=== PATIENT | female | born 1950 ===

== ENCOUNTER 2021-08-28 22:10 | Inpatient (IN) ==
[2021-08-29] MEDS ORDERED: Naloxone 0.4 MG/ML INJ IVP PRN (00:30)
[2021-08-29] MEDS ORDERED: Melatonin 3 MG TABLET PO PRN (00:30)
[2021-08-29] MEDS ORDERED: Acetaminophen 325 MG TABLET PO PRN (00:30)
[2021-08-29] MEDS: 0.9 % Sodium Chloride 1,000 ML IVC SCH (01:17)
[2021-08-29 02:18] LABS: Albumin 2.3 g/dL (3.5-5.7); Bilirubin,Total 0.4 mg/dL (0.3-1.0); Globulin 2.4 g/dL (2.4-3.5); Magnesium 1.2 mg/dL (1.6-2.6); Phosphorous 5.2 mg/dL (2.7-4.5); Potassium 3.6 mEq/L (3.5-5.1); Total Protein 4.7 g/dL (6.4-8.9)
[2021-08-29 02:23] LABS: Basophils % 0.1 %; Eosinophils % 0.4 %; Hemoglobin 7.1 g/dL (11.5-15.4); Lymphocytes # 0.3 K/mcL (0.6-4.6); Lymphocytes % 3.9 %; Mean Corpuscular HGB Conc 30.9 g/dL (31.6-35.5); Mean Corpuscular Volume 84.2 fL (83.0-100.0); Mean Platelet Volume 9.9 fL (9.4-12.4); Monocytes # 0.6 K/mcL (0.0-1.3); Monocytes % 7.5 %; Neutrophils # 6.6 K/mcL (1.6-8.9); Platelet Count 263 K/mcL (140-400); Red Blood Count 2.73 M/mcL (3.82-4.97); Red Cell Distribution Width 16.4 % (11.5-14.5); Segmented Neutrophils % 86.1 %; White Blood Count 7.6 K/mcL (4.3-11.1)
[2021-08-29] MEDS ORDERED: Dextrose Gel 15 GM/37.5 ML TUBE PO PRN ×2 (03:49)
[2021-08-29] MEDS ORDERED: *HR* Dextrose 50 % in Water (Syg) 50 ML SYRINGE IVP PRN (03:49)
[2021-08-29] MEDS ORDERED: D5% in Water 1,000 ML IVC PRN (03:49)
[2021-08-29] MEDS ORDERED: Sodium Bicarbonate 50 MEQ/50 ML VIAL IVP ONE (04:18)
[2021-08-29] MEDS ORDERED: Calcium Gluconate 1gm/50mL 1 GM/50 ML BAG IVPB ONE (04:21)
[2021-08-29] MEDS ORDERED: Magnesium Sulfate 1 GM/102 ML PIGGYBACK IVPB ONE (05:00)
[2021-08-29 09:12] LABS: Hematocrit 25.5 % (35.3-44.9); Hemoglobin 7.8 g/dL (11.5-15.4); Mean Corpuscular HGB Conc 30.6 g/dL (31.6-35.5); Mean Corpuscular Hemoglobin 25.8 pg (28.0-33.3); Mean Corpuscular Volume 84.4 fL (83.0-100.0); Mean Platelet Volume 10.1 fL (9.4-12.4); Platelet Count 302 K/mcL (140-400); Red Blood Count 3.02 M/mcL (3.82-4.97); Red Cell Distribution Width 16.5 % (11.5-14.5); White Blood Count 5.8 K/mcL (4.3-11.1)
[2021-08-29 09:31] LABS: Calcium 7.5 mg/dL (8.6-10.3); Potassium 4.4 mEq/L (3.5-5.1)
[2021-08-29 11:45] LABS: Uric Acid 12.3 mg/dL (2.3-7.6)
[2021-08-29 11:56] LABS: Sodium, Urine 98.3 mEq/L
[2021-08-29 12:03] LABS: Bilirubin,Urine Negative (Negative); Blood,Urine Large (Negative); Clarity,Urine Ex.Turbid (Clear); Color,Urine Orange (Yellow); Glucose,Urine (UA) Normal (Normal); Ketones,Urine Negative (Negative); Leukocyte Esterase,Urine Large (Negative); Nitrite,Urine Negative (Negative); PH,Urine 6.5 pH Units (5.0-8.0); Protein,Urine >=300 mg/dL (Neg-Trace); RBC,Urine 15-30 per hpf (0-3); Specific Gravity,Urine 1.019 (1.010-1.025); Urobilinogen,Urine Normal (Normal); WBC,Urine TNTC per hpf (0-3)
[2021-08-29] MEDS: cefTRIAXone 2,000 MG in 0.9 % Sodium Chloride Mini Bag 100 ML IVPB SCH (13:04)
[2021-08-29] MEDS: Sodium Bicarbonate 75 MEQ in 0.45 % Sodium Chloride 1,000 ML IVC SCH ×2 (14:31→23:09)
[2021-08-29] MEDS: Insulin LISPRO 300 UNITS/3 ML VIAL SUBQ SCH (16:36)
[2021-08-30 03:53] LABS: Albumin 2.2 g/dL (3.5-5.7); Calcium 6.5 mg/dL (8.6-10.3); Phosphorous 5.9 mg/dL (2.7-4.5); Potassium 3.8 mEq/L (3.5-5.1)
[2021-08-30 04:03] LABS: Hematocrit 18.2 % (35.3-44.9); Mean Corpuscular Hemoglobin 26.5 pg (28.0-33.3); Mean Corpuscular Volume 80.5 fL (83.0-100.0); Mean Platelet Volume 9.8 fL (9.4-12.4); Platelet Count 257 K/mcL (140-400); Red Blood Count 2.26 M/mcL (3.82-4.97); Red Cell Distribution Width 16.8 % (11.5-14.5); White Blood Count 5.3 K/mcL (4.3-11.1)
[2021-08-30] MEDS ORDERED: 0.9 % Sodium Chloride 250 ML ONE (05:18)
[2021-08-30] MEDS: Insulin LISPRO 300 UNITS/3 ML VIAL SUBQ SCH ×3 (07:23→16:43)
[2021-08-30] MEDS: Sodium Bicarbonate 75 MEQ in 0.45 % Sodium Chloride 1,000 ML IVC SCH ×2 (07:41→17:44)
[2021-08-30] MEDS: cefTRIAXone 2,000 MG in 0.9 % Sodium Chloride Mini Bag 100 ML IVPB SCH (12:05)
[2021-08-30] MEDS ORDERED: Bismuth Subsalicylate 120 ML ORAL SUSPENSION PO PRN (13:06)
[2021-08-30] MEDS ORDERED: Mag Hydrox/Al Hydrox/Simeth 30 ML UDC PO PRN (13:06)
[2021-08-30] MEDS: Ondansetron 4 MG/2 ML VIAL IVP PRN ×2 (14:30→22:38)
[2021-08-30] MEDS: Calcium Gluconate 1gm/50mL 1 GM/50 ML BAG IVPB SCH ×3 (14:41→16:47)
[2021-08-30 15:07] LABS: Hematocrit 21.2 % (35.3-44.9); Hemoglobin 7.1 g/dL (11.5-15.4)
[2021-08-30] MEDS: Bismuth Subsalicylate 120 ML ORAL SUSPENSION PO PRN (17:26)
[2021-08-30 21:11] LABS: Hematocrit 22.4 % (35.3-44.9); Hemoglobin 7.4 g/dL (11.5-15.4)
[2021-08-30] MEDS: 0.9 % Sodium Chloride 1,000 ML IVC SCH (22:47)
[2021-08-31] MEDS: Sodium Bicarbonate 75 MEQ in 0.45 % Sodium Chloride 1,000 ML IVC SCH ×3 (02:38→21:04)
[2021-08-31 06:59] LABS: Hematocrit 21.3 % (35.3-44.9); Hemoglobin 6.9 g/dL (11.5-15.4); Mean Corpuscular HGB Conc 32.4 g/dL (31.6-35.5); Mean Corpuscular Hemoglobin 26.6 pg (28.0-33.3); Mean Corpuscular Volume 82.2 fL (83.0-100.0); Mean Platelet Volume 9.8 fL (9.4-12.4); Platelet Count 272 K/mcL (140-400); Red Blood Count 2.59 M/mcL (3.82-4.97); Red Cell Distribution Width 16.7 % (11.5-14.5); White Blood Count 6.5 K/mcL (4.3-11.1)
[2021-08-31 07:13] LABS: Albumin 2.2 g/dL (3.5-5.7); Calcium 6.9 mg/dL (8.6-10.3); Phosphorous 6.1 mg/dL (2.7-4.5)
[2021-08-31] MEDS: Insulin LISPRO 300 UNITS/3 ML VIAL SUBQ SCH ×3 (07:34→16:55)
[2021-08-31] MEDS: Ondansetron 4 MG/2 ML VIAL IVP PRN (07:53)
[2021-08-31] MEDS: cefTRIAXone 2,000 MG in 0.9 % Sodium Chloride Mini Bag 100 ML IVPB SCH (12:05)
[2021-08-31] MEDS: Bismuth Subsalicylate 120 ML ORAL SUSPENSION PO PRN (12:21)
[2021-08-31] MEDS ORDERED: Prochlorperazine 10 MG/2 ML VIAL IVP PRN (15:07)
[2021-08-31] MEDS ORDERED: *HR* Promethazine 25 MG/ML VIAL IM PRN (15:07)
[2021-08-31] MEDS: Calcium Gluconate 1gm/50mL 1 GM/50 ML BAG IVPB SCH ×2 (15:46→16:45)
[2021-08-31] MEDS: Pantoprazole 40 MG VIAL IVP SCH ×2 (16:09→19:14)
[2021-08-31 16:17] LABS: Hematocrit 24.1 % (35.3-44.9); Mean Corpuscular HGB Conc 33.2 g/dL (31.6-35.5); Mean Corpuscular Hemoglobin 27.1 pg (28.0-33.3); Mean Corpuscular Volume 81.7 fL (83.0-100.0); Mean Platelet Volume 9.7 fL (9.4-12.4); Platelet Count 313 K/mcL (140-400); Red Blood Count 2.95 M/mcL (3.82-4.97); Red Cell Distribution Width 16.9 % (11.5-14.5)
[2021-08-31 16:21] LABS: White Blood Count 9.9 K/mcL (4.3-11.1)
[2021-09-01 01:21] LABS: Hemoglobin 7.8 g/dL (11.5-15.4); Mean Corpuscular HGB Conc 32.5 g/dL (31.6-35.5); Mean Corpuscular Hemoglobin 27.2 pg (28.0-33.3); Mean Corpuscular Volume 83.6 fL (83.0-100.0); Mean Platelet Volume 10.1 fL (9.4-12.4); Platelet Count 303 K/mcL (140-400); Red Blood Count 2.87 M/mcL (3.82-4.97); Red Cell Distribution Width 17.1 % (11.5-14.5); White Blood Count 8.1 K/mcL (4.3-11.1)
[2021-09-01 01:27] LABS: INR 1.5; Prothrombin Time 16.7 Seconds (9.4-12.1)
[2021-09-01 01:43] LABS: Albumin 2.3 g/dL (3.5-5.7); Calcium 7.2 mg/dL (8.6-10.3); Phosphorous 6.3 mg/dL (2.7-4.5); Potassium 3.9 mEq/L (3.5-5.1)
[2021-09-01] MEDS: Sodium Bicarbonate 75 MEQ in 0.45 % Sodium Chloride 1,000 ML IVC SCH ×4 (01:49→21:26)
[2021-09-01] MEDS: Pantoprazole 40 MG VIAL IVP SCH ×2 (06:20→17:00)
[2021-09-01] MEDS: Insulin LISPRO 300 UNITS/3 ML VIAL SUBQ SCH ×3 (08:11→16:28)
[2021-09-01] MEDS: Ondansetron 4 MG/2 ML VIAL IVP PRN (08:35)
[2021-09-01] MEDS ORDERED: 0.9 % Sodium Chloride 500 ML ONE ×2 (09:14→09:42)
[2021-09-01] MEDS ORDERED: *HR* FentaNYL (PF) 100 MCG/2 ML VIAL IVP ONE (09:32)
[2021-09-01] MEDS ORDERED: *HR* Midazolam HCl 2 MG/2 ML VIAL IVP ONE (09:32)
[2021-09-01] MEDS ORDERED: Isovue-300 50ML VIAL IVP ONE (09:48)
[2021-09-01] MEDS: cefTRIAXone 2,000 MG in 0.9 % Sodium Chloride Mini Bag 100 ML IVPB SCH (13:02)
[2021-09-02 02:24] LABS: Mean Corpuscular Hemoglobin 26.6 pg (28.0-33.3); Mean Corpuscular Volume 83.1 fL (83.0-100.0); Mean Platelet Volume 10.2 fL (9.4-12.4); Platelet Count 248 K/mcL (140-400); Red Blood Count 3.01 M/mcL (3.82-4.97); Red Cell Distribution Width 17.1 % (11.5-14.5); White Blood Count 11.8 K/mcL (4.3-11.1)
[2021-09-02] MEDS: Ondansetron 4 MG/2 ML VIAL IVP PRN ×3 (03:01→21:04)
[2021-09-02 03:31] LABS: Albumin 2.1 g/dL (3.5-5.7); Calcium 6.7 mg/dL (8.6-10.3); Phosphorous 7.1 mg/dL (2.7-4.5); Potassium 5.3 mEq/L (3.5-5.1); Uric Acid 12.7 mg/dL (2.3-7.6)
[2021-09-02 04:32] LABS: INR 1.4; Prothrombin Time 15.4 Seconds (9.4-12.1)
[2021-09-02] MEDS: Pantoprazole 40 MG VIAL IVP SCH ×2 (04:59→17:57)
[2021-09-02] MEDS: Insulin LISPRO 300 UNITS/3 ML VIAL SUBQ SCH ×3 (07:10→18:00)
[2021-09-02] MEDS ORDERED: SODIUM ZIRCONIUM CYCLOSILICATE 5 GM POWD.PACK PO ONE (08:02)
[2021-09-02] MEDS: Sodium Bicarbonate 75 MEQ in 0.45 % Sodium Chloride 1,000 ML IVC SCH (08:30)
[2021-09-02] MEDS: allopurinoL 100 MG TABLET PO SCH (08:33)
[2021-09-02] MEDS ORDERED: Sodium Bicarbonate 150 MEQ in 0.45 % Sodium Chloride 1,000 ML IVC SCH (08:46)
[2021-09-02] MEDS: Calcium Gluconate 1gm/50mL 1 GM/50 ML BAG IVPB SCH ×2 (10:46→11:32)
[2021-09-02] MEDS: MetroNIDAZOLE 500 MG/100 ML 500 MG/100 ML BAG IVPB SCH ×2 (10:48→17:59)
[2021-09-02] MEDS ORDERED: Heparin 1,000 UNITS/500 mL 500 ML ONE (12:26)
[2021-09-02] MEDS ORDERED: Lidocaine/EPI 1:100k 1% 50 ML VIAL ONE (12:26)
[2021-09-02] MEDS ORDERED: 0.9 % Sodium Chloride 250 ML IVC PRN (12:41)
[2021-09-02] MEDS ORDERED: *HR* Heparin 10,000 UNIT/10 ML VIAL IV PRN (12:41)
[2021-09-02] MEDS ORDERED: 0.9 % Sodium Chloride 1,000 ML PRIME SCH (12:45)
[2021-09-02] MEDS ORDERED: *HR* Heparin 5,000 UNIT/ML VIAL ONE (13:13)
[2021-09-02] MEDS: Sodium Bicarbonate 150 MEQ in D5% in Water 1,000 ML IVC SCH (14:32)
[2021-09-02] MEDS: cefTRIAXone 2,000 MG in 0.9 % Sodium Chloride Mini Bag 100 ML IVPB SCH ×2 (14:33→18:00)
[2021-09-02 15:16] LABS: Albumin 2.1 g/dL (3.5-5.7); Albumin/Globulin Ratio 0.8 (1.1-2.2); Bilirubin,Direct 0.1 mg/dL (0.0-0.2); Bilirubin,Indirect 0.3 mg/dL (0.0-1.0); Bilirubin,Total 0.4 mg/dL (0.3-1.0); Globulin 2.5 g/dL (2.4-3.5); Magnesium 1.5 mg/dL (1.6-2.6); Total Protein 4.6 g/dL (6.4-8.9)
[2021-09-02 16:46] LABS: Hepatitis B Surface Antibody < 3.10 mIU/mL
[2021-09-02 16:56] LABS: Hepatitis B Surface Antigen Nonreactive (Nonreactive)
[2021-09-03] MEDS: MetroNIDAZOLE 500 MG/100 ML 500 MG/100 ML BAG IVPB SCH ×3 (01:01→17:09)
[2021-09-03] MEDS: Sodium Bicarbonate 150 MEQ in D5% in Water 1,000 ML IVC SCH ×2 (04:12→06:21)
[2021-09-03 04:26] LABS: Hemoglobin 6.9 g/dL (11.5-15.4); Mean Corpuscular HGB Conc 31.4 g/dL (31.6-35.5); Mean Corpuscular Hemoglobin 26.3 pg (28.0-33.3); Mean Platelet Volume 10.1 fL (9.4-12.4); Platelet Count 226 K/mcL (140-400); Red Blood Count 2.62 M/mcL (3.82-4.97); White Blood Count 9.2 K/mcL (4.3-11.1)
[2021-09-03 04:43] LABS: Albumin 2.1 g/dL (3.5-5.7); Calcium 7.2 mg/dL (8.6-10.3); Phosphorous 5.4 mg/dL (2.7-4.5); Potassium 3.4 mEq/L (3.5-5.1)
[2021-09-03 06:26] LABS: Magnesium 1.5 mg/dL (1.6-2.6)
[2021-09-03] MEDS: Pantoprazole 40 MG VIAL IVP SCH ×2 (06:30→17:08)
[2021-09-03 07:01] LABS: INR 1.5; Prothrombin Time 16.2 Seconds (9.4-12.1)
[2021-09-03] MEDS: Insulin LISPRO 300 UNITS/3 ML VIAL SUBQ SCH ×3 (07:52→17:32)
[2021-09-03] MEDS ORDERED: *HR* Heparin 10,000 UNIT/10 ML VIAL IV PRN ×2 (09:56)
[2021-09-03] MEDS ORDERED: 0.9 % Sodium Chloride 250 ML IVC PRN (09:56)
[2021-09-03] MEDS: 0.9 % Sodium Chloride 1,000 ML IVC SCH (10:00)
[2021-09-03] MEDS: Ondansetron 4 MG/2 ML VIAL IVP PRN (10:06)
[2021-09-03] MEDS: cefTRIAXone 2,000 MG in 0.9 % Sodium Chloride Mini Bag 100 ML IVPB SCH (21:44)
[2021-09-04] MEDS: MetroNIDAZOLE 500 MG/100 ML 500 MG/100 ML BAG IVPB SCH ×3 (01:46→14:34)
[2021-09-04 01:57] LABS: Hematocrit 23.5 % (35.3-44.9); Hemoglobin 7.5 g/dL (11.5-15.4); Mean Corpuscular HGB Conc 31.9 g/dL (31.6-35.5); Mean Corpuscular Hemoglobin 27.6 pg (28.0-33.3); Mean Corpuscular Volume 86.4 fL (83.0-100.0); Mean Platelet Volume 10.5 fL (9.4-12.4); Platelet Count 199 K/mcL (140-400); Red Blood Count 2.72 M/mcL (3.82-4.97); Red Cell Distribution Width 16.6 % (11.5-14.5); White Blood Count 10.9 K/mcL (4.3-11.1)
[2021-09-04 02:17] LABS: Calcium 7.2 mg/dL (8.6-10.3); Potassium 3.5 mEq/L (3.5-5.1)
[2021-09-04] MEDS: 0.9 % Sodium Chloride 1,000 ML IVC SCH ×2 (05:41→21:28)
[2021-09-04] MEDS: Pantoprazole 40 MG VIAL IVP SCH (05:43)
[2021-09-04] MEDS: Insulin LISPRO 300 UNITS/3 ML VIAL SUBQ SCH ×3 (07:37→15:57)
[2021-09-04] MEDS: Ondansetron 4 MG/2 ML VIAL IVP PRN ×2 (08:36→14:33)
[2021-09-04] MEDS ORDERED: *HR* Heparin 10,000 UNIT/10 ML VIAL IV PRN ×2 (09:17)
[2021-09-04] MEDS ORDERED: 0.9 % Sodium Chloride 250 ML IVC PRN (09:17)
[2021-09-04 09:26] LABS: Eosinophils # 0.2 K/mcL (0.0-0.6); Lymphocytes # 0.4 K/mcL (0.6-4.6); Monocytes # 0.2 K/mcL (0.0-1.3); Neutrophils # 9.8 K/mcL (1.6-8.9)
[2021-09-04 09:27] LABS: Hypochromasia Present (Not Present); Platelet Estimate Normal (Normal)
[2021-09-04] MEDS: *HR* Promethazine 25 MG/ML VIAL IM PRN ×2 (10:28→21:27)
[2021-09-04] MEDS: cefTRIAXone 2,000 MG in 0.9 % Sodium Chloride Mini Bag 100 ML IVPB SCH ×2 (11:09→21:27)
[2021-09-04 11:51] LABS: Lactate Dehydrogenase 240 Units/L (140-271)
[2021-09-04 12:09] LABS: Ferritin 505 ng/mL (10-120)
[2021-09-05] MEDS: MetroNIDAZOLE 500 MG/100 ML 500 MG/100 ML BAG IVPB SCH ×4 (00:10→23:56)
[2021-09-05 05:23] LABS: Hematocrit 23.1 % (35.3-44.9); Hemoglobin 7.2 g/dL (11.5-15.4); Mean Corpuscular HGB Conc 31.2 g/dL (31.6-35.5); Mean Corpuscular Hemoglobin 27.6 pg (28.0-33.3); Mean Corpuscular Volume 88.5 fL (83.0-100.0); Mean Platelet Volume 10.1 fL (9.4-12.4); Platelet Count 179 K/mcL (140-400); Red Blood Count 2.61 M/mcL (3.82-4.97); Red Cell Distribution Width 16.6 % (11.5-14.5); White Blood Count 12.8 K/mcL (4.3-11.1)
[2021-09-05 05:40] LABS: Calcium 7.5 mg/dL (8.6-10.3); Potassium 3.7 mEq/L (3.5-5.1)
[2021-09-05] MEDS: Insulin LISPRO 300 UNITS/3 ML VIAL SUBQ SCH ×3 (08:15→17:47)
[2021-09-05] MEDS: *HR* Promethazine 25 MG/ML VIAL IM PRN (10:05)
[2021-09-05] MEDS ORDERED: *HR* Midazolam HCl 2 MG/2 ML VIAL IVP ONE (15:10)
[2021-09-05] MEDS ORDERED: *HR* FentaNYL (PF) 100 MCG/2 ML VIAL IVP ONE (15:10)
[2021-09-05] MEDS ORDERED: Heparin 1,000 UNITS/500 mL 500 ML ONE (15:20)
[2021-09-05] MEDS ORDERED: 0.9 % Sodium Chloride 1,000 ML ONE (15:20)
[2021-09-05] MEDS ORDERED: *HR* Heparin 5,000 UNIT/ML VIAL ONE ×2 (15:31→15:35)
[2021-09-05] MEDS ORDERED: Isovue-300 50ML VIAL IVP ONE (15:48)
[2021-09-05 16:41] LABS: VBG HCO3 24 mEq/L (21-27); VBG PCO2 51 mmHg (41-51); VBG PH 7.28 pH Units (7.32-7.42); VBG PO2 91 mmHg (25-50)
[2021-09-05 16:45] LABS: Hematocrit 25.1 % (35.3-44.9); Hemoglobin 7.6 g/dL (11.5-15.4); Mean Corpuscular HGB Conc 30.3 g/dL (31.6-35.5); Mean Corpuscular Hemoglobin 27.2 pg (28.0-33.3); Mean Platelet Volume 10.3 fL (9.4-12.4); Platelet Count 182 K/mcL (140-400); Red Blood Count 2.79 M/mcL (3.82-4.97); Red Cell Distribution Width 16.6 % (11.5-14.5); White Blood Count 13.8 K/mcL (4.3-11.1)
[2021-09-05] MEDS ORDERED: 0.9 % Sodium Chloride 250 ML IVC PRN (16:55)
[2021-09-05] MEDS ORDERED: *HR* Heparin 10,000 UNIT/10 ML VIAL IV PRN (16:55)
[2021-09-05 17:05] LABS: Lymphocytes # 1.1 K/mcL (0.6-4.6); Monocytes # 0.3 K/mcL (0.0-1.3); Neutrophils # 11.3 K/mcL (1.6-8.9); Platelet Estimate Normal (Normal)
[2021-09-05 17:06] LABS: Troponin I 0.06 ng/mL (< 0.04)
[2021-09-05 17:08] LABS: Albumin 2.3 g/dL (3.5-5.7); Calcium 7.7 mg/dL (8.6-10.3); Phosphorous 5.8 mg/dL (2.7-4.5); Potassium 4.4 mEq/L (3.5-5.1)
[2021-09-05] MEDS ORDERED: Albumin 25% 25gram/100mL 25 GM/100 ML IV.SOLN ONE ×2 (17:24→18:03)
[2021-09-05] MEDS: 0.9 % Sodium Chloride 1,000 ML IVC SCH ×2 (18:51→19:10)
[2021-09-05] MEDS: cefTRIAXone 2,000 MG in 0.9 % Sodium Chloride Mini Bag 100 ML IVPB SCH (21:18)
[2021-09-06 01:56] LABS: Calcium 7.5 mg/dL (8.6-10.3); Potassium 3.6 mEq/L (3.5-5.1)
[2021-09-06 02:01] LABS: Hematocrit 17.4 % (35.3-44.9); Mean Corpuscular HGB Conc 29.3 g/dL (31.6-35.5); Mean Corpuscular Hemoglobin 26.4 pg (28.0-33.3); Mean Corpuscular Volume 90.2 fL (83.0-100.0); Mean Platelet Volume 10.9 fL (9.4-12.4); Platelet Count 122 K/mcL (140-400); Red Blood Count 1.93 M/mcL (3.82-4.97); Red Cell Distribution Width 16.6 % (11.5-14.5); White Blood Count 16.5 K/mcL (4.3-11.1)
[2021-09-06 02:07] LABS: Hemoglobin 5.1 g/dL (11.5-15.4)
[2021-09-06] MEDS: 0.9 % Sodium Chloride 1,000 ML IVC SCH (05:27)
[2021-09-06] MEDS: Insulin LISPRO 300 UNITS/3 ML VIAL SUBQ SCH ×3 (07:56→16:04)
[2021-09-06] MEDS: allopurinoL 100 MG TABLET PO SCH (09:27)
[2021-09-06] MEDS: MetroNIDAZOLE 500 MG/100 ML 500 MG/100 ML BAG IVPB SCH (09:27)
[2021-09-06] MEDS ORDERED: 0.9 % Sodium Chloride 250 ML IVC PRN (13:22)
[2021-09-06] MEDS ORDERED: Albumin 25% 25gram/100mL 25 GM/100 ML IV.SOLN IVPB ONE (14:21)
[2021-09-06] MEDS: Piperacillin/Tazobactam 3.375 GM in 0.9 % Sodium Chloride Mini Bag 100 ML IVPB SCH (18:41)
[2021-09-06 19:00] LABS: Hematocrit 22.3 % (35.3-44.9); Hemoglobin 7.1 g/dL (11.5-15.4)
[2021-09-06] MEDS: Furosemide 40 MG/4 ML VIAL IVP SCH (20:08)
[2021-09-06] MEDS: Albumin 25% 12.5gm/50mL 12.5 GM/50 ML IV.SOLN IVPB SCH (23:51)
[2021-09-07] MEDS: Piperacillin/Tazobactam 3.375 GM in 0.9 % Sodium Chloride Mini Bag 100 ML IVPB SCH (04:32)
[2021-09-07 04:55] LABS: Basophils % 0.3 %; Eosinophils % 0.4 %; Hematocrit 21.1 % (35.3-44.9); Hemoglobin 6.8 g/dL (11.5-15.4); Immature Granulocytes % 2.6 % (0-4); Lymphocytes # 0.5 K/mcL (0.6-4.6); Lymphocytes % 4.5 %; Mean Corpuscular HGB Conc 32.2 g/dL (31.6-35.5); Mean Corpuscular Hemoglobin 28.3 pg (28.0-33.3); Mean Corpuscular Volume 87.9 fL (83.0-100.0); Mean Platelet Volume 11.6 fL (9.4-12.4); Monocytes # 0.6 K/mcL (0.0-1.3); Monocytes % 5.5 %; Neutrophils # 9.9 K/mcL (1.6-8.9); Platelet Count 131 K/mcL (140-400); Red Cell Distribution Width 15.9 % (11.5-14.5); Segmented Neutrophils % 86.7 %; White Blood Count 11.4 K/mcL (4.3-11.1)
[2021-09-07 05:15] LABS: Calcium 8.1 mg/dL (8.6-10.3); Potassium 3.3 mEq/L (3.5-5.1)
[2021-09-07] MEDS: Insulin LISPRO 300 UNITS/3 ML VIAL SUBQ SCH ×3 (08:32→17:59)
[2021-09-07] MEDS: Furosemide 40 MG/4 ML VIAL IVP SCH ×3 (09:04→20:15)
[2021-09-07] MEDS ORDERED: *HR* Metoprolol 5 MG/5 ML VIAL IVP ONE (09:28)
[2021-09-07] MEDS: Albumin 25% 12.5gm/50mL 12.5 GM/50 ML IV.SOLN IVPB SCH ×2 (10:10→16:43)
[2021-09-07] MEDS ORDERED: 0.9 % Sodium Chloride 250 ML IVC PRN (11:38)
[2021-09-07] MEDS ORDERED: *HR* Heparin 10,000 UNIT/10 ML VIAL IV PRN (11:38)
[2021-09-07] MEDS ORDERED: Albumin 25% 25gram/100mL 25 GM/100 ML IV.SOLN IVPB PRN (11:38)
[2021-09-08] MEDS: Albumin 25% 12.5gm/50mL 12.5 GM/50 ML IV.SOLN IVPB SCH ×4 (00:33→23:28)
[2021-09-08 04:52] LABS: Hematocrit 21.7 % (35.3-44.9); Hemoglobin 6.8 g/dL (11.5-15.4); Immature Platelets 6.9 % (1.1-6.1); Mean Corpuscular HGB Conc 31.3 g/dL (31.6-35.5); Mean Corpuscular Hemoglobin 27.9 pg (28.0-33.3); Mean Corpuscular Volume 88.9 fL (83.0-100.0); Mean Platelet Volume 11.5 fL (9.4-12.4); Red Blood Count 2.44 M/mcL (3.82-4.97); Red Cell Distribution Width 15.9 % (11.5-14.5)
[2021-09-08 05:01] LABS: Calcium 8.6 mg/dL (8.6-10.3); Potassium 3.2 mEq/L (3.5-5.1)
[2021-09-08] MEDS ORDERED: *HR* Heparin 10,000 UNIT/10 ML VIAL IV PRN (07:44)
[2021-09-08] MEDS ORDERED: 0.9 % Sodium Chloride 250 ML IVC PRN (07:44)
[2021-09-08] MEDS: Insulin LISPRO 300 UNITS/3 ML VIAL SUBQ SCH ×3 (08:38→16:24)
[2021-09-08] MEDS: Furosemide 40 MG/4 ML VIAL IVP SCH ×3 (13:59→21:05)
[2021-09-09 03:54] LABS: Hematocrit 22.4 % (35.3-44.9); Hemoglobin 6.9 g/dL (11.5-15.4)
[2021-09-09 04:11] LABS: Calcium 8.4 mg/dL (8.6-10.3); Potassium 2.7 mEq/L (3.5-5.1)
[2021-09-09] MEDS: Albumin 25% 12.5gm/50mL 12.5 GM/50 ML IV.SOLN IVPB SCH ×3 (07:51→23:34)
[2021-09-09] MEDS: Insulin LISPRO 300 UNITS/3 ML VIAL SUBQ SCH ×3 (08:49→18:30)
[2021-09-09] MEDS: allopurinoL 100 MG TABLET PO SCH (11:15)
[2021-09-09] MEDS: Furosemide 40 MG/4 ML VIAL IVP SCH ×3 (11:16→18:31)
[2021-09-09 15:28] LABS: Calcium 8.4 mg/dL (8.6-10.3); Potassium 3.9 mEq/L (3.5-5.1)
[2021-09-10] MEDS: Insulin LISPRO 300 UNITS/3 ML VIAL SUBQ SCH ×3 (07:38→18:42)
[2021-09-10] MEDS: Albumin 25% 12.5gm/50mL 12.5 GM/50 ML IV.SOLN IVPB SCH ×3 (07:56→23:48)
[2021-09-10] MEDS: Furosemide 40 MG/4 ML VIAL IVP SCH ×2 (07:58→19:58)
[2021-09-10] MEDS ORDERED: 0.9 % Sodium Chloride 250 ML IVC PRN (09:01)
[2021-09-10] MEDS ORDERED: *HR* Heparin 10,000 UNIT/10 ML VIAL IV PRN (09:01)
[2021-09-10 09:41] LABS: Basophils % 0.6 %; Eosinophils # 0.1 K/mcL (0.0-0.6); Eosinophils % 1.2 %; Hematocrit 20.6 % (35.3-44.9); Hemoglobin 6.3 g/dL (11.5-15.4); Immature Granulocytes % 3.5 % (0-4); Lymphocytes # 0.4 K/mcL (0.6-4.6); Lymphocytes % 8.7 %; Mean Corpuscular HGB Conc 30.6 g/dL (31.6-35.5); Mean Corpuscular Hemoglobin 27.8 pg (28.0-33.3); Mean Corpuscular Volume 90.7 fL (83.0-100.0); Monocytes # 0.4 K/mcL (0.0-1.3); Monocytes % 7.5 %; Neutrophils # 3.8 K/mcL (1.6-8.9); Platelet Count 153 K/mcL (140-400); Red Blood Count 2.27 M/mcL (3.82-4.97); Red Cell Distribution Width 15.5 % (11.5-14.5); Segmented Neutrophils % 78.5 %; White Blood Count 4.8 K/mcL (4.3-11.1)
[2021-09-10 10:04] LABS: Albumin 3.9 g/dL (3.5-5.7); Calcium 8.9 mg/dL (8.6-10.3); Potassium 3.4 mEq/L (3.5-5.1)
[2021-09-10 12:05] LABS: Folate 13.4 ng/mL (3.0-16.0)
[2021-09-10] MEDS ORDERED: 0.9 % Sodium Chloride 250 ML IVC SCH (13:45)
[2021-09-10 21:51] LABS: Hematocrit 24.2 % (35.3-44.9); Hemoglobin 7.6 g/dL (11.5-15.4)
[2021-09-11 03:22] LABS: Basophils # 0.1 K/mcL (0.0-0.2); Basophils % 0.9 %; Eosinophils # 0.1 K/mcL (0.0-0.6); Eosinophils % 2.4 %; Hematocrit 24.2 % (35.3-44.9); Hemoglobin 7.5 g/dL (11.5-15.4); Lymphocytes # 0.6 K/mcL (0.6-4.6); Lymphocytes % 10.5 %; Mean Corpuscular Hemoglobin 27.9 pg (28.0-33.3); Mean Platelet Volume 11.1 fL (9.4-12.4); Monocytes # 0.5 K/mcL (0.0-1.3); Monocytes % 8.8 %; Neutrophils # 4.2 K/mcL (1.6-8.9); Platelet Count 188 K/mcL (140-400); Red Blood Count 2.69 M/mcL (3.82-4.97); Red Cell Distribution Width 14.9 % (11.5-14.5); Segmented Neutrophils % 72.4 %; White Blood Count 5.8 K/mcL (4.3-11.1)
[2021-09-11 03:30] LABS: Calcium 8.8 mg/dL (8.6-10.3); Potassium 3.6 mEq/L (3.5-5.1)
[2021-09-11] MEDS: Insulin LISPRO 300 UNITS/3 ML VIAL SUBQ SCH ×3 (07:23→17:13)
[2021-09-11] MEDS: Albumin 25% 12.5gm/50mL 12.5 GM/50 ML IV.SOLN IVPB SCH ×2 (07:30→16:17)
[2021-09-11] MEDS: Furosemide 40 MG/4 ML VIAL IVP SCH ×2 (07:30→16:17)
[2021-09-11 14:25] LABS: Adenovirus F 40/41 PCR Not detected (Not detect); Astrovirus PCR Not detected (Not detect); C.difficile Toxin A/B Gene PCR Not detected (Not detect); Campylobacter by PCR Not detected (Not detect); Cryptosporidium by PCR Not detected (Not detect); Cyclospora cayetanensis PCR Not detected (Not detect); E. coli O157 by PCR Not detected (Not detect); Entamoeba histolytica PCR Not detected (Not detect); Enteroaggregative E.coli(EAEC) Not detected (Not detect); Enteropathogenic E.coli(EPEC) Not detected (Not detect); Enterotoxigenic E.coli (ETEC) Not detected (Not detect); Giardia lamblia PCR Not detected (Not detect); Norovirus GI/GII PCR Not detected (Not detect); Plesiomonas shigelloides PCR Not detected (Not detect); Rotavirus A PCR Not detected (Not detect); Salmonella PCR Not detected (Not detect); Sapovirus PCR Not detected (Not detect); Shig/EnteroinvasiveE coli EIEC Not detected (Not detect); Shigalike tox-prod E coli STEC Not detected (Not detect); Vibrio PCR Not detected (Not detect); Vibrio cholerae PCR Not detected (Not detect); Yersinia enterocolitica PCR Not detected (Not detect)
[2021-09-12] MEDS: Albumin 25% 12.5gm/50mL 12.5 GM/50 ML IV.SOLN IVPB SCH ×3 (00:04→16:16)
[2021-09-12 00:46] LABS: Hematocrit 24.7 % (35.3-44.9); Hemoglobin 7.8 g/dL (11.5-15.4); Mean Corpuscular HGB Conc 31.6 g/dL (31.6-35.5); Mean Corpuscular Hemoglobin 28.4 pg (28.0-33.3); Mean Corpuscular Volume 89.8 fL (83.0-100.0); Mean Platelet Volume 10.7 fL (9.4-12.4); Platelet Count 207 K/mcL (140-400); Red Blood Count 2.75 M/mcL (3.82-4.97); Red Cell Distribution Width 15.1 % (11.5-14.5); White Blood Count 5.3 K/mcL (4.3-11.1)
[2021-09-12 00:51] LABS: Calcium 8.9 mg/dL (8.6-10.3); Potassium 3.5 mEq/L (3.5-5.1)
[2021-09-12 02:45] LABS: Eosinophils # 0.2 K/mcL (0.0-0.6); Lymphocytes # 0.7 K/mcL (0.6-4.6); Monocytes # 0.4 K/mcL (0.0-1.3); Neutrophils # 3.9 K/mcL (1.6-8.9)
[2021-09-12 02:51] LABS: Platelet Estimate Normal (Normal)
[2021-09-12] MEDS: Insulin LISPRO 300 UNITS/3 ML VIAL SUBQ SCH ×3 (08:12→17:33)
[2021-09-12] MEDS: Furosemide 40 MG/4 ML VIAL IVP SCH ×2 (08:19→17:34)
[2021-09-12] MEDS: Lactobacillus 1 EACH CAP.SPRINK PO SCH ×2 (09:16→20:12)
[2021-09-12] MEDS: Ondansetron 4 MG/2 ML VIAL IVP PRN (11:20)
[2021-09-13] MEDS: Albumin 25% 12.5gm/50mL 12.5 GM/50 ML IV.SOLN IVPB SCH ×3 (00:34→17:07)
[2021-09-13] MEDS: Lactobacillus 1 EACH CAP.SPRINK PO SCH ×2 (08:39→22:09)
[2021-09-13] MEDS: Insulin LISPRO 300 UNITS/3 ML VIAL SUBQ SCH ×3 (08:40→17:07)
[2021-09-13] MEDS: allopurinoL 100 MG TABLET PO SCH (08:43)
[2021-09-13] MEDS: Furosemide 40 MG/4 ML VIAL IVP SCH (11:07)
[2021-09-13 12:54] LABS: Eosinophils # 0.1 K/mcL (0.0-0.6); Hematocrit 24.2 % (35.3-44.9); Hemoglobin 7.7 g/dL (11.5-15.4); Mean Corpuscular HGB Conc 31.8 g/dL (31.6-35.5); Mean Corpuscular Hemoglobin 28.5 pg (28.0-33.3); Mean Corpuscular Volume 89.6 fL (83.0-100.0); Mean Platelet Volume 10.7 fL (9.4-12.4); Platelet Count 237 K/mcL (140-400); Red Cell Distribution Width 14.9 % (11.5-14.5); White Blood Count 4.6 K/mcL (4.3-11.1)
[2021-09-13 13:02] LABS: Calcium 9.1 mg/dL (8.6-10.3); Phosphorous 4.6 mg/dL (2.7-4.5); Potassium 3.8 mEq/L (3.5-5.1)
[2021-09-13 14:10] LABS: Lymphocytes # 1.4 K/mcL (0.6-4.6); Monocytes # 0.2 K/mcL (0.0-1.3); Neutrophils # 2.9 K/mcL (1.6-8.9); Platelet Estimate Normal (Normal)
[2021-09-14] MEDS: Albumin 25% 12.5gm/50mL 12.5 GM/50 ML IV.SOLN IVPB SCH (00:36)
[2021-09-14 06:09] LABS: Basophils # 0.1 K/mcL (0.0-0.2); Basophils % 1.1 %; Eosinophils # 0.2 K/mcL (0.0-0.6); Eosinophils % 3.6 %; Hematocrit 22.1 % (35.3-44.9); Immature Granulocytes % 9.2 % (0-4); Lymphocytes # 0.7 K/mcL (0.6-4.6); Lymphocytes % 14.2 %; Mean Corpuscular HGB Conc 31.7 g/dL (31.6-35.5); Mean Corpuscular Hemoglobin 28.8 pg (28.0-33.3); Mean Corpuscular Volume 90.9 fL (83.0-100.0); Mean Platelet Volume 10.4 fL (9.4-12.4); Monocytes # 0.6 K/mcL (0.0-1.3); Monocytes % 11.8 %; Neutrophils # 2.8 K/mcL (1.6-8.9); Platelet Count 225 K/mcL (140-400); Red Blood Count 2.43 M/mcL (3.82-4.97); Red Cell Distribution Width 15.1 % (11.5-14.5); Segmented Neutrophils % 60.1 %; White Blood Count 4.7 K/mcL (4.3-11.1)
[2021-09-14 06:29] LABS: Calcium 9.4 mg/dL (8.6-10.3); Potassium 3.6 mEq/L (3.5-5.1)
[2021-09-14] MEDS ORDERED: Furosemide 40 MG TABLET PO SCH (08:00)
[2021-09-14] MEDS: Insulin LISPRO 300 UNITS/3 ML VIAL SUBQ SCH ×3 (08:13→16:35)
[2021-09-14 08:17] LABS: ABG Base Excess 4 mEq/L (-2 to 3); ABG HCO3 28 mEq/L (21-27); ABG Oxygen Saturation 93 % (95-98); ABG PCO2 41 mmHg (35-45); ABG PH 7.45 pH Units (7.32-7.45); ABG PO2 65 mmHg (85-104); ABG TCO2 29 mEq/L (20-26)
[2021-09-14] MEDS: Lactobacillus 1 EACH CAP.SPRINK PO SCH ×2 (08:29→19:41)
[2021-09-14] MEDS: Furosemide 40 MG TABLET PO SCH (08:30)
[2021-09-14 13:16] LABS: Hematocrit 24.4 % (35.3-44.9); Hemoglobin 7.4 g/dL (11.5-15.4)
[2021-09-15 01:29] LABS: Basophils # 0.1 K/mcL (0.0-0.2); Basophils % 0.8 %; Eosinophils # 0.2 K/mcL (0.0-0.6); Eosinophils % 3.9 %; Hematocrit 25.2 % (35.3-44.9); Hemoglobin 7.6 g/dL (11.5-15.4); Immature Granulocytes % 11.6 % (0-4); Lymphocytes # 0.8 K/mcL (0.6-4.6); Lymphocytes % 14.2 %; Mean Corpuscular HGB Conc 30.2 g/dL (31.6-35.5); Mean Corpuscular Hemoglobin 27.8 pg (28.0-33.3); Mean Corpuscular Volume 92.3 fL (83.0-100.0); Monocytes # 0.7 K/mcL (0.0-1.3); Neutrophils # 3.4 K/mcL (1.6-8.9); Platelet Count 274 K/mcL (140-400); Red Blood Count 2.73 M/mcL (3.82-4.97); Red Cell Distribution Width 15.3 % (11.5-14.5); Segmented Neutrophils % 57.5 %; White Blood Count 5.9 K/mcL (4.3-11.1)
[2021-09-15 01:48] LABS: Calcium 9.4 mg/dL (8.6-10.3); Potassium 4.1 mEq/L (3.5-5.1)
[2021-09-15 02:02] LABS: Anisocytosis 1+ (Not Present); Platelet Estimate Normal (Normal)
[2021-09-15] MEDS: Insulin LISPRO 300 UNITS/3 ML VIAL SUBQ SCH ×3 (07:33→16:25)
[2021-09-15] MEDS: Furosemide 40 MG TABLET PO SCH (08:16)
[2021-09-15] MEDS: Lactobacillus 1 EACH CAP.SPRINK PO SCH ×2 (08:17→21:03)
[2021-09-16 05:58] LABS: Basophils # 0.1 K/mcL (0.0-0.2); Basophils % 1.4 %; Eosinophils # 0.2 K/mcL (0.0-0.6); Eosinophils % 4.1 %; Hematocrit 22.9 % (35.3-44.9); Hemoglobin 7.2 g/dL (11.5-15.4); Immature Granulocytes % 8.8 % (0-4); Lymphocytes # 0.8 K/mcL (0.6-4.6); Lymphocytes % 13.3 %; Mean Corpuscular HGB Conc 31.4 g/dL (31.6-35.5); Mean Corpuscular Hemoglobin 28.8 pg (28.0-33.3); Mean Corpuscular Volume 91.6 fL (83.0-100.0); Mean Platelet Volume 10.2 fL (9.4-12.4); Monocytes # 0.7 K/mcL (0.0-1.3); Monocytes % 12.1 %; Neutrophils # 3.6 K/mcL (1.6-8.9); Platelet Count 287 K/mcL (140-400); Red Cell Distribution Width 14.9 % (11.5-14.5); Segmented Neutrophils % 60.3 %; White Blood Count 5.9 K/mcL (4.3-11.1)
[2021-09-16 06:18] LABS: Calcium 9.8 mg/dL (8.6-10.3); Potassium 3.9 mEq/L (3.5-5.1)
[2021-09-16 06:48] LABS: Platelet Estimate Normal (Normal)
[2021-09-16] MEDS: Insulin LISPRO 300 UNITS/3 ML VIAL SUBQ SCH ×3 (09:46→16:42)
[2021-09-16] MEDS: Lactobacillus 1 EACH CAP.SPRINK PO SCH ×2 (09:50→20:07)
[2021-09-16] MEDS: Furosemide 40 MG TABLET PO SCH (09:50)
[2021-09-16] MEDS: allopurinoL 100 MG TABLET PO SCH (09:51)
[2021-09-17] MEDS: Insulin LISPRO 300 UNITS/3 ML VIAL SUBQ SCH ×3 (07:49→16:44)
[2021-09-17] MEDS: Furosemide 40 MG TABLET PO SCH (07:55)
[2021-09-17] MEDS: Lactobacillus 1 EACH CAP.SPRINK PO SCH ×2 (07:55→20:36)
[2021-09-17 10:54] LABS: Calcium 9.7 mg/dL (8.6-10.3); Potassium 4.1 mEq/L (3.5-5.1)
[2021-09-17 14:20] LABS: Total Volume 24 Hour,Urine 0.67 Liters (0.60-1.60)
[2021-09-17 14:38] LABS: Protein/Creatinine Ratio,Urine 3.48 mg/mg (0.00-0.20)
[2021-09-18 06:25] LABS: Hematocrit 24.8 % (35.3-44.9); Hemoglobin 7.6 g/dL (11.5-15.4); Mean Corpuscular HGB Conc 30.6 g/dL (31.6-35.5); Mean Corpuscular Hemoglobin 27.9 pg (28.0-33.3); Mean Corpuscular Volume 91.2 fL (83.0-100.0); Mean Platelet Volume 9.6 fL (9.4-12.4); Platelet Count 328 K/mcL (140-400); Red Blood Count 2.72 M/mcL (3.82-4.97); Red Cell Distribution Width 15.2 % (11.5-14.5); White Blood Count 5.8 K/mcL (4.3-11.1)
[2021-09-18 06:43] LABS: Calcium 9.8 mg/dL (8.6-10.3); Potassium 3.9 mEq/L (3.5-5.1)
[2021-09-18] MEDS: Furosemide 40 MG TABLET PO SCH (09:36)
[2021-09-18] MEDS: Insulin LISPRO 300 UNITS/3 ML VIAL SUBQ SCH ×3 (09:36→19:48)
[2021-09-18] MEDS: Lactobacillus 1 EACH CAP.SPRINK PO SCH ×2 (09:36→21:24)
[2021-09-18] MEDS: Ondansetron 4 MG/2 ML VIAL IVP PRN (12:49)
[2021-09-18 12:58] LABS: Total Volume 24 Hour,Urine 0.67 Liters (0.60-1.60)
[2021-09-19] MEDS: Insulin LISPRO 300 UNITS/3 ML VIAL SUBQ SCH ×3 (09:26→19:46)
[2021-09-19] MEDS: Lactobacillus 1 EACH CAP.SPRINK PO SCH ×2 (09:34→21:51)
[2021-09-19] MEDS: Furosemide 40 MG TABLET PO SCH (09:34)
[2021-09-20] MEDS: Insulin LISPRO 300 UNITS/3 ML VIAL SUBQ SCH ×3 (08:08→16:24)
[2021-09-20] MEDS: Furosemide 40 MG TABLET PO SCH (08:11)
[2021-09-20] MEDS: Lactobacillus 1 EACH CAP.SPRINK PO SCH ×2 (08:11→21:17)
[2021-09-20] MEDS: allopurinoL 100 MG TABLET PO SCH (08:13)
[2021-09-21] MEDS: Insulin LISPRO 300 UNITS/3 ML VIAL SUBQ SCH ×3 (07:26→16:28)
[2021-09-21] MEDS: Lactobacillus 1 EACH CAP.SPRINK PO SCH ×2 (07:48→20:27)
[2021-09-21] MEDS: Furosemide 40 MG TABLET PO SCH (07:48)
[2021-09-22 05:35] LABS: Basophils # 0.1 K/mcL (0.0-0.2); Basophils % 1.3 %; Eosinophils # 0.3 K/mcL (0.0-0.6); Eosinophils % 5.4 %; Hematocrit 23.2 % (35.3-44.9); Hemoglobin 7.4 g/dL (11.5-15.4); Immature Granulocytes % 6.3 % (0-4); Lymphocytes # 1.1 K/mcL (0.6-4.6); Lymphocytes % 19.8 %; Mean Corpuscular HGB Conc 31.9 g/dL (31.6-35.5); Mean Corpuscular Hemoglobin 28.7 pg (28.0-33.3); Mean Corpuscular Volume 89.9 fL (83.0-100.0); Mean Platelet Volume 8.9 fL (9.4-12.4); Monocytes # 0.6 K/mcL (0.0-1.3); Monocytes % 10.9 %; Platelet Count 382 K/mcL (140-400); Red Blood Count 2.58 M/mcL (3.82-4.97); Red Cell Distribution Width 15.9 % (11.5-14.5); Segmented Neutrophils % 56.3 %; White Blood Count 5.4 K/mcL (4.3-11.1)
[2021-09-22 05:55] LABS: Calcium 9.7 mg/dL (8.6-10.3); Potassium 3.8 mEq/L (3.5-5.1)
[2021-09-22] MEDS: Insulin LISPRO 300 UNITS/3 ML VIAL SUBQ SCH ×3 (07:38→16:33)
[2021-09-22] MEDS: Furosemide 40 MG TABLET PO SCH (08:30)
[2021-09-22] MEDS: Lactobacillus 1 EACH CAP.SPRINK PO SCH ×2 (08:30→20:17)
[2021-09-23] MEDS: Insulin LISPRO 300 UNITS/3 ML VIAL SUBQ SCH ×3 (07:22→16:48)
[2021-09-23] MEDS: Furosemide 40 MG TABLET PO SCH (08:31)
[2021-09-23] MEDS: Lactobacillus 1 EACH CAP.SPRINK PO SCH ×2 (08:31→20:44)
[2021-09-23] MEDS: allopurinoL 100 MG TABLET PO SCH (08:34)
[2021-09-24] MEDS: Insulin LISPRO 300 UNITS/3 ML VIAL SUBQ SCH ×3 (08:25→16:56)
[2021-09-24] MEDS: Furosemide 40 MG TABLET PO SCH (08:26)
[2021-09-24] MEDS: Lactobacillus 1 EACH CAP.SPRINK PO SCH ×2 (08:26→22:02)
[2021-09-25] MEDS: Lactobacillus 1 EACH CAP.SPRINK PO SCH ×2 (08:22→20:25)
[2021-09-25] MEDS: Furosemide 40 MG TABLET PO SCH (08:22)
[2021-09-25] MEDS: Insulin LISPRO 300 UNITS/3 ML VIAL SUBQ SCH ×3 (08:24→16:40)
[2021-09-26] MEDS: Furosemide 40 MG TABLET PO SCH (08:58)
[2021-09-26] MEDS: Lactobacillus 1 EACH CAP.SPRINK PO SCH ×2 (08:59→19:42)
[2021-09-26] MEDS: Insulin LISPRO 300 UNITS/3 ML VIAL SUBQ SCH ×3 (09:00→16:36)
[2021-09-27] MEDS: Insulin LISPRO 300 UNITS/3 ML VIAL SUBQ SCH ×3 (07:57→16:43)
[2021-09-27] MEDS: Furosemide 40 MG TABLET PO SCH (07:58)
[2021-09-27] MEDS: Lactobacillus 1 EACH CAP.SPRINK PO SCH ×2 (07:58→20:31)
[2021-09-27] MEDS: allopurinoL 100 MG TABLET PO SCH (08:00)
[2021-09-28 07:16] VITALS: O2SAT 100
[2021-09-28] MEDS: Insulin LISPRO 300 UNITS/3 ML VIAL SUBQ SCH ×3 (07:55→16:22)
[2021-09-28] MEDS: Lactobacillus 1 EACH CAP.SPRINK PO SCH ×2 (08:05→21:19)
[2021-09-28] MEDS: Furosemide 40 MG TABLET PO SCH (08:05)
[2021-09-29 03:14] VITALS: PULSE 95
[2021-09-29] MEDS: Insulin LISPRO 300 UNITS/3 ML VIAL SUBQ SCH ×3 (08:24→16:41)
[2021-09-29] MEDS: Lactobacillus 1 EACH CAP.SPRINK PO SCH (08:24)
[2021-09-29] MEDS: Furosemide 40 MG TABLET PO SCH (08:24)
[2021-09-29 16:30] VITALS: BP 124/62; TEMP 97.6
== END 2021-09-29 19:40 | disposition home health service (06) | DRG 871 ==
LOC: 2ANU → SUATTDRO 08-29 00:17 → OBSVTOIN 08-29 00:17 → 2NNU 09-08 12:40 → 2NENU 09-10 14:35
PROVIDERS: ADMIT Internal Medicine; ATTEND Internal Medicine